=== PATIENT | female | born 1955 | race Caucasian/White ===

== ENCOUNTER 2017-02-05 05:31 | Emergency (ER) | payer BC ==
[2017-02-05] MEDS ORDERED: Nitrostat 0.4 MG (ED) SL ONE ×2 (05:51→05:54)
[2017-02-05] MEDS ORDERED: BABY ASPIRIN 81 MG CHEW PO ONE (05:51)
[2017-02-05] MEDS ORDERED: BABY ASPIRIN 81 MG CHEW ONE (05:54)
[2017-02-05] MEDS ORDERED: Sodium Chloride 0.9% 1000 ML 1,000 ML ONE (05:56)
[2017-02-05 05:58] LABS: BASOPHIL % 0.3 % (0.0-0.4); Eosinophil % 1.6 % (0.00-5.0); Granulocytes % 69.1 % (36.0-66.0); Lymphocytes % 22.4 % (24.0-44.0); Mean Cell Volume 88.1 fl (78-100); Mean Corpuscular Hemoglobin 29.1 pg (26-32); Mean Platelet Volume 10.4 fl (6-9.5); Monocytes % 6.6 % (0.0-12.0); Platelet Count 248 K/mm3 (150-450); Red Blood Count 5.39 M/mm3 (4.1-5.4); Red Cell Distribution Width 13.4 % (11.5-14.0); White Blood Count 10.6 K/mm3 (4.0-10.5)
[2017-02-05] MEDS ORDERED: NITRO-BID 2% UD PACKETS TOP ONE (05:58)
--- NOTE | 2017-02-05 05:58 | ERPHSYRPT ---
- History of Present Illness Time Seen by Provider: 02/05/17 05:50 Historian: patient Exam Limitations: other Patient Subjective Stated Complaint: chest pain since 10 yesterday morning , states its on right side radiating into right shoulder and some in back Triage Nursing Assessment: pt alert and orientedx3, balance is steady, ambulated by self, skin warm dry and intact, pulses strong equal bilateral radius, lung sounds clear diminished, bowel sounds x4. Physician History: PATIENT WITH A HISTORY OF COPD, HYPERTENSION AND CORONARY ARTERY DISEASE, UNDER WENT CARDIAC CATHERIZATION X 2, LAST CATHERIZATON IN 2013, AND NOW COMPLAINS OF SHARP RIGHT SIDED CHEST PAINS WHICH RADIATE TO HER BACK SINCE 10AM YESTERDAY, ASSOCIATED WITH DIAPHORESIS, WORSE UPON EXERTION. STATES PAIN SCALE 8/10 Timing/Duration: yesterday Activities at Onset: none Quality: sharpness, stabbing Location: central, other (RIGHT PARASTERNAL) Chest Pain Radiation: back Severity of Pain-Max: moderate Severity of Pain-Current: moderate Modifying Factors: Improves With: exertion Associated Symptoms: other (DIAPHORESIS) Prior Chest Pain/Cardiac Workup: cardiac cath (X 2) Nitro Today/Relief: provided by ED, complete relief Aspirin Treatment Today: 81 mg x 1, provided at home Allergies/Adverse Reactions: Iodinated Contrast- Oral and IV Dye [Iodinated Contrast Media - IV Dye] Allergy (Verified 05/24/15 16:04) Home Medications: Levothyroxine Sodium [Synthroid] 200 mcg PO DAILY 05/24/15 [History] Amlodipine Besylate [Norvasc] 2.5 mg PO DAILY 02/05/17 [History] Metformin HCl [Metformin HCl ER] 500 mg PO DAILY 02/05/17 [History] Metoprolol Tartrate 25 mg PO DAILY 02/05/17 [History] Hx Tetanus, Diphtheria Vaccination/Date Given: Yes Hx Influenza Vaccination/Date Given: No Hx Pneumococcal Vaccination/Date Given: No Immunizations Up to Date: Yes - Review of Systems Constitutional: No Fever, No Chills Eyes: No Symptoms Ears, Nose, & Throat: No Symptoms Respiratory: No Symptoms, No Cough, No Dyspnea Cardiac: Chest Pain, Other (DIAPHORESIS), No Edema, No Syncope Abdominal/Gastrointestinal: No Symptoms, No Abdominal Pain, No Nausea, No Vomiting, No Diarrhea Genitourinary Symptoms: No Symptoms, No Dysuria Musculoskeletal: No Symptoms, No Back Pain, No Neck Pain Skin: No Symptoms, No Rash Neurological: No Dizziness, No Focal Weakness, No Sensory Changes Psychological: No Symptoms Endocrine: No Symptoms All Other Systems: Reviewed and Negative - Past Medical History Pertinent Past Medical History: Yes Cardiac History: High Cholesterol, Hypertension, Other Endocrine Medical History: Hypothyroidism - Past Surgical History Past Surgical History: Yes Gastrointestinal: Appendectomy, Cholecystectomy Musculoskeletal: Other Female Surgical History: Hysterectomy, Lumpectomy - Social History Smoking Status: Current every day smoker How long have you smoked: 40 Exposure to second hand smoke: Yes Drug Use: none Patient Lives Alone: No - Nursing Vital Signs Nursing Vital Signs: Initial Vital Signs Temperature 97.5 F 02/05/17 05:31 Pulse Rate 76 02/05/17 05:31 Respiratory Rate 20 02/05/17 05:31 Blood Pressure 155/74 02/05/17 05:31 O2 Sat by Pulse Oximetry 96 02/05/17 05:31 Pain Scale Pain Intensity 2 - Physical Exam General Appearance: no apparent distress, alert Eye Exam: PERRL/EOMI, eyes nml inspection Ears, Nose, Throat Exam: normal ENT inspection, moist mucous membranes Neck Exam: normal inspection, non-tender, supple, full range of motion Respiratory Exam: normal breath sounds, lungs clear, No respiratory distress Cardiovascular Exam: regular rate/rhythm, normal heart sounds Gastrointestinal/Abdomen Exam: soft, normal bowel sounds (NONTENDER), No tenderness, No mass Back Exam: normal inspection, No CVA tenderness, No vertebral tenderness Extremity Exam: normal inspection, normal range of motion Neurologic Exam: alert, oriented x 3, cooperative, normal mood/affect, sensation nml, No motor deficits Skin Exam: normal color, warm, dry SpO2 Interpretation: normal SpO2: 96 Oxygen Delivery: Room Air - Course EKG Interpreted by Me: Sinus Rhythm, NORMAL AXIS, Other (ANTEROSEPTAL T-WAVE INVERSION) - Radiology Exams Chest X-ray Interpretation: Interpreted by me (BILATERAL LOWER LOBE INTERSTITIAL SCARRING VS ATELECTASIS, NO INFILTRATE) Ordered Tests: Active Orders 24 hr Category Date Time Status EKG-ER Only STAT Care 02/05/17 05:51 Active IV Insertion STAT Care 02/05/17 05:51 Active Oxygen-ED Only NASAL CANNULA 2 lpm Care 02/05/17 05:51 Active CHEST 1 VIEW (PORTABLE) Stat Exams 02/05/17 05:52 Taken CBC W DIFF Stat Lab 02/05/17 05:50 Received CMP Stat Lab 02/05/17 05:50 Received D-DIMER QUANTITATION Stat Lab 02/05/17 05:50 Received NT PRO BNP Stat Lab 02/05/17 05:50 Received PROTIME WITH INR Stat Lab 02/05/17 05:50 Received TROPONIN Q3H Lab 02/05/17 05:50 Received TROPONIN Q3H Lab 02/05/17 09:00 Ordered TROPONIN Q3H Lab 02/05/17 12:00 Ordered TROPONIN Q3H Lab 02/05/17 15:00 Ordered TROPONIN Q3H Lab 02/05/17 18:00 Ordered Medication Summary Generic Name Dose Route Start Last Admin Trade Name Freq PRN Reason Stop Dose Admin Sodium Chloride 1,000 mls @ 50 mls/hr 02/05/17 06:00 02/05/17 05:56 Sodium Chloride 0.9% 1000 Ml IV 03/07/17 05:59 50 mls/hr .Q20H LAURIE Administration Discontinued Medications Generic Name Dose Route Start Last Admin Trade Name Freq PRN Reason Stop Dose Admin Aspirin 324 mg 02/05/17 05:51 02/05/17 05:57 Baby Aspirin 81 Mg Chew PO 02/05/17 05:52 324 mg STAT ONE Administration Aspirin Confirm 02/05/17 05:54 Baby Aspirin 81 Mg Chew Administered 02/05/17 05:55 Dose 324 mg .ROUTE .STK-MED ONE Nitroglycerin 0.4 mg 02/05/17 05:51 02/05/17 05:57 Nitrostat 0.4 Mg (Ed) SL 02/05/17 05:52 0.4 mg STAT ONE Administration Nitroglycerin Confirm 02/05/17 05:54 Nitrostat 0.4 Mg (Ed) Administered 02/05/17 05:55 Dose 0.4 mg SL .STK-MED ONE Nitroglycerin 1 gm 02/05/17 05:58 02/05/17 05:59 Nitro-Bid 2% Ud Packets TOP 02/05/17 05:59 1 gm STAT ONE Administration Nitroglycerin Confirm 02/05/17 05:59 Nitro-Bid 2% Ud Packets Administered 02/05/17 06:00 Dose 1 gm .ROUTE .STK-MED ONE Lab/Rad Data: Laboratory Result Diagrams 02/05/17 05:50 Laboratory Results 02/05/17 02/05/17 02/05/17 Range/Units 05:50 05:50 05:50 WBC 10.6 H (4.0-10.5) K/mm3 RBC 5.39 (4.1-5.4) M/mm3 Hgb 15.7 (12.0-16.0) gm/dl Hct 47.5 H (35-47) % MCV 88.1 (78-100) fl MCH 29.1 (26-32) pg MCHC 33.1 (32-36) g/dl RDW 13.4 (11.5-14.0) % Plt Count 248 (150-450) K/mm3 MPV 10.4 H (6-9.5) fl Gran % 69.1 H (36.0-66.0) % Lymphocytes % 22.4 L (24.0-44.0) % Monocytes % 6.6 (0.0-12.0) % Eosinophils % 1.6 (0.00-5.0) % Basophils % 0.3 (0.0-0.4) % Basophils # 0.03 (0-0.4) INR 1.01 (0.8-3.0) D-Dimer 473 (0-500) ng/mL Troponin I < 0.017 (0.000-0.056) ng/ml - Progress Progress Note: 02/05/17 06:01 ADMINISTERED 4 BABY ASPIRIN, NTG 0.4MG SL WITH COMPLETE RELIEF OF PAIN, NITROPASTE 1"APPLIED TO CHEST WALL 02/05/17 06:58 Discussed with : Other (DISCUSSED WITH DR IBRAHIM ACCEPTS TRANSFER TO [facility] ER [facility]IA [facility]) - Departure Time of Disposition: 07:00 Departure Disposition: Transfer Clinical Impression: ACUTE CHEST PAIN Condition: Stable Critical Care Time: No Referrals: PRITI JOHNSON MD [Primary Care Provider] -
[2017-02-05] MEDS ORDERED: NITRO-BID 2% UD PACKETS ONE (05:59)
[2017-02-05] MEDS ORDERED: Sodium Chloride 0.9% 1000 ML 1,000 ML IV SCH (06:00)
[2017-02-05 06:24] LABS: INR 1.01 (0.8-3.0); PROTIME 11.2 SECONDS (9.95-12.35)
[2017-02-05 06:48] LABS: ALBUMIN 4.2 g/dL (3.4-5.0); ALKALINE PHOSPHATASE 88 U/L (46-116); ANION GAP 13.8 MEQ/L (5-15); BLOOD UREA NITROGEN 15 mg/dL (9-20); CHLORIDE 102 mEq/L (98-107); Carbon Dioxide 26.9 mEq/L (21-32); Glucose 198 MG/DL (70-110); Potassium 4.2 mEq/L (3.5-5.1); SGOT/AST 22 U/L (15-37); SGPT/ALT 43 U/L (12-78); SODIUM 139 mEq/L (136-145); Total Protein 8.3 gm/dL (6.4-8.2)
[2017-02-05 07:42] VITALS: BP 160/75; PULSE 86; O2SAT 97
--- NOTE | 2017-02-05 08:52 | XRAY ---
Indication: Chest pain. Comparison: December 25, 2012. Portable chest again demonstrates minimal bibasilar atelectasis/scarring with a few incidental calcified granulomas. Remaining lungs clear. Heart is not enlarged. Bony thorax intact with mild degenerative changes. Impression: Nonacute chest with chronic features.
== END 2017-02-05 07:43 | disposition short-term general hospital (02) ==
LOC: ED 05:31
DX: R07.89 Other chest pain (principal); J44.9 Chronic obstructive pulmonary disease, unspecified; I10 Essential (primary) hypertension; I25.10 Atherosclerotic heart disease of native coronary artery without angina pectoris; E78.00 Pure hypercholesterolemia, unspecified; E03.9 Hypothyroidism, unspecified
CPT/HCPCS: 36000; 36415; 71010; 80053; 83880; 84484; 85025; 85379; 85610; 93005; 96360; 96361; 99285; A9270-GY

== ENCOUNTER 2020-04-01 08:26 | Emergency (ER) | payer BC ==
--- NOTE | 2020-04-01 08:29 | ERPHSYRPT ---
- History of Present Illness Time Seen by Provider: 04/01/20 08:28 Historian: patient Exam Limitations: no limitations Physician History: This is a 64-year-old white female smoker of cigarettes who presents with right anterior chest wall tightness that began last night at 9 PM. Patient did not take any nitroglycerin last night or today. She did take 1 baby aspirin this morning. Patient has a history of hypertension, coronary artery disease, hypothyroidism, diabetes, COPD and elevated cholesterol. Patient has had cardiac catheterizations in the past. She does not have any cardiac stents in place. There is no radiation of her chest tightness. 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 Her primary care physician is Dr. Johnson Timing/Duration: yesterday Activities at Onset: none Quality: tightness Location: other (Right anterior chest wall) Chest Pain Radiation: no radiation Severity of Pain-Max: mild Severity of Pain-Current: mild (Rates it maximum 3 out of 10) Modifying Factors: Improves With: nothing Associated Symptoms: denies symptoms Prior Chest Pain/Cardiac Workup: no prior chest pain Nitro Today/Relief: no nitro taken today Aspirin Treatment Today: 81 mg x 1, provided at home Allergies/Adverse Reactions: Iodinated Contrast Media [Iodinated Contrast Media - IV Dye] Allergy (Verified 05/24/15 16:04) Home Medications: Levothyroxine Sodium [Synthroid] 200 mcg PO DAILY 05/24/15 [History] Amlodipine Besylate [Norvasc] 2.5 mg PO DAILY 02/05/17 [History] Metformin HCl [Metformin HCl ER] 500 mg PO DAILY 02/05/17 [History] Metoprolol Tartrate 25 mg PO DAILY 02/05/17 [History] Aspirin [Aspirin EC] 81 mg PO DAILY 04/01/20 [History] Fluticasone/Umeclidin/Vilanter [Trelegy Ellipta 100-62.5-25] 1 each IH DAILY 04/01/20 [History] Isosorbide Mononitrate [Isosorbide Mononitrate ER] 60 mg PO DAILY 04/01/20 [History] Hx Tetanus, Diphtheria Vaccination/Date Given: Yes Hx Influenza Vaccination/Date Given: No Hx Pneumococcal Vaccination/Date Given: No Travel Risk - International Travel Have you traveled outside of the country in past 3 weeks: No - Coronavirus Screening Are you exhibiting any of the following symptoms?: No Close contact with a COVID-19 positive Pt in past 14-21 Days: No - Review of Systems Constitutional: No Symptoms Eyes: No Symptoms Ears, Nose, & Throat: No Symptoms Respiratory: No Symptoms Cardiac: Chest Pain (Right anterior chest wall described as nonradiating tightness) Abdominal/Gastrointestinal: No Symptoms Genitourinary Symptoms: No Symptoms Musculoskeletal: No Symptoms Skin: No Symptoms Neurological: No Symptoms Psychological: No Symptoms Endocrine: No Symptoms Hematologic/Lymphatic: No Symptoms Immunological/Allergic: No Symptoms All Other Systems: Reviewed and Negative - Past Medical History Pertinent Past Medical History: Yes Neurological History: No Pertinent History ENT History: No Pertinent History Cardiac History: High Cholesterol, Hypertension, Other Respiratory History: No Pertinent History Endocrine Medical History: Hypothyroidism Musculoskeletal History: No Pertinent History GI Medical History: No Pertinent History History: No Pertinent History Psycho-Social History: No Pertinent History Female Reproductive Disorders: No Pertinent History - Past Surgical History Past Surgical History: Yes Neuro Surgical History: No Pertinent History Cardiac: Cardiac Catheterization Respiratory: No Pertinent History Gastrointestinal: Appendectomy, Cholecystectomy Musculoskeletal: Other Female Surgical History: Hysterectomy, Lumpectomy - Social History Smoking Status: Current every day smoker How long have you smoked: 40 Exposure to second hand smoke: Yes Drug Use: none Patient Lives Alone: No - Nursing Vital Signs Nursing Vital Signs: Initial Vital Signs Temperature 97.6 F 04/01/20 08:27 Pulse Rate 80 04/01/20 08:27 Respiratory Rate 20 04/01/20 08:27 Blood Pressure 155/66 04/01/20 08:27 O2 Sat by Pulse Oximetry 98 04/01/20 08:27 Pain Scale Pain Intensity 0 - Physical Exam General Appearance: no apparent distress, alert, anxiety Eye Exam: PERRL/EOMI, eyes nml inspection Ears, Nose, Throat Exam: normal ENT inspection, moist mucous membranes Neck Exam: normal inspection, non-tender, supple, full range of motion Respiratory Exam: normal breath sounds, chest tenderness, lungs clear, airway intact, No respiratory distress Cardiovascular Exam: regular rate/rhythm, normal heart sounds, normal peripheral pulses Gastrointestinal/Abdomen Exam: soft, normal bowel sounds, No tenderness Pelvic Exam: not done Rectal Exam: not done Back Exam: normal inspection, normal range of motion, No CVA tenderness, No vertebral tenderness Extremity Exam: normal inspection, normal range of motion, pelvis stable Neurologic Exam: alert, oriented x 3, cooperative, telemarketer II-XII nml as tested, normal mood/affect, nml cerebellar function, nml station & gait, sensation nml Skin Exam: normal color, warm, dry Lymphatic Exam: No adenopathy SpO2 Interpretation: normal O2 Delivery: Room Air - Course Nursing assessment & vital signs reviewed: Yes EKG Interpreted by Me: RATE (79), Sinus Rhythm, Right [place] Deviation, NORMAL INTERVALS, NORMAL QRS, Other (No acute ischemic changes on this EKG. When compared to EKG dated 02/05/2017 there are no significant changes.) Ordered Tests: Active Orders 24 hr Category Date Time Status Heat Treating Furnace Tender STAT Care 04/01/20 08:38 Active EKG-ER Only STAT Care 04/01/20 08:36 Active IV Insertion STAT Care 04/01/20 08:36 Active Pulse Oximetry (ED) STAT Care 04/01/20 08:36 Active CHEST 1 VIEW (PORTABLE) Stat Exams 04/01/20 08:52 Completed CBC W DIFF Stat Lab 04/01/20 08:44 Completed CMP Stat Lab 04/01/20 08:44 Completed D-DIMER QUANTITATIVE Stat Lab 04/01/20 08:44 Completed NT PRO BNP Stat Lab 04/01/20 08:44 Completed PROTIME WITH INR Stat Lab 04/01/20 08:44 Completed T4 (Thyroxine) Stat Lab 04/01/20 Completed TROPONIN Q3H Lab 04/01/20 08:44 Completed TROPONIN Q3H Lab 04/01/20 12:00 Completed TROPONIN Q3H Lab 04/01/20 14:45 Ordered TROPONIN Q3H Lab 04/01/20 17:45 Ordered TROPONIN Q3H Lab 04/01/20 20:45 Ordered TSH [TSH, 3RD Generation] Stat Lab 04/01/20 08:49 Completed Medication Summary Discontinued Medications Generic Name Dose Route Start Last Admin Trade Name Freq PRN Reason Stop Dose Admin Aspirin 243 mg 04/01/20 08:36 04/01/20 08:42 Baby Aspirin 81 Mg Chew PO 04/01/20 08:37 243 mg STAT ONE Administration Aspirin Confirm 04/01/20 08:46 Baby Aspirin 81 Mg Chew Administered 04/01/20 08:47 Dose 243 mg .ROUTE .STRuangguru-MED ONE Lab/Rad Data: Laboratory Result Diagrams 04/01/20 08:44 04/01/20 08:44 Laboratory Results 04/01/20 04/01/20 04/01/20 Range/Units Unknown 12:00 08:49 WBC (4.0-10.5) K/mm3 RBC (4.1-5.4) M/mm3 Hgb (12.0-16.0) gm/dl Hct (35-47) % MCV (78-100) fl MCH (26-32) pg MCHC (32-36) g/dl RDW (11.5-14.0) % Plt Count (150-450) K/mm3 MPV (7.5-11.0) fl Gran % (36.0-66.0) % Eos # (Auto) (0-0.5) Absolute Lymphs (auto) (1.0-4.6) Absolute Monos (auto) (0.0-1.3) Lymphocytes % (24.0-44.0) % Monocytes % (0.0-12.0) % Eosinophils % (0.00-5.0) % Basophils % (0.0-0.4) % Absolute Granulocytes (1.4-6.9) Basophils # (0-0.4) PT (9.95-12.35) SECONDS INR (0.8-3.0) D-Dimer (215-500) ng/mL Sodium (137-145) mmol/L Potassium (3.5-5.1) mmol/L Chloride (98-107) mmol/L Carbon Dioxide (22-30) mmol/L Anion Gap (5-15) MEQ/L BUN (7-17) mg/dL Creatinine (0.52-1.04) mg/dL Estimated GFR ML/MIN Glucose (74-106) mg/dL Calcium (8.4-10.2) mg/dL Total Bilirubin (0.2-1.3) mg/dL AST (14-36) U/L ALT (0-35) U/L Alkaline Phosphatase (38-126) U/L Troponin I < 0.012 (0.000-0.034) ng/mL NT-Pro-B Natriuret Pep (0-900) pg/mL Serum Total Protein (6.3-8.2) g/dL Albumin (3.5-5.0) g/dL Thyroxine (T4) 18.5 H (5.53-10.96) ug/dL TSH 3rd Generation < 0.015 L (0.47-4.68) mIU/L 04/01/20 04/01/20 04/01/20 Range/Units 08:44 08:44 08:44 WBC (4.0-10.5) K/mm3 RBC (4.1-5.4) M/mm3 Hgb (12.0-16.0) gm/dl Hct (35-47) % MCV (78-100) fl MCH (26-32) pg MCHC (32-36) g/dl RDW (11.5-14.0) % Plt Count (150-450) K/mm3 MPV (7.5-11.0) fl Gran % (36.0-66.0) % Eos # (Auto) (0-0.5) Absolute Lymphs (auto) (1.0-4.6) Absolute Monos (auto) (0.0-1.3) Lymphocytes % (24.0-44.0) % Monocytes % (0.0-12.0) % Eosinophils % (0.00-5.0) % Basophils % (0.0-0.4) % Absolute Granulocytes (1.4-6.9) Basophils # (0-0.4) PT 13.0 H (9.95-12.35) SECONDS INR 1.15 (0.8-3.0) D-Dimer 545 H* (215-500) ng/mL Sodium 136 L (137-145) mmol/L Potassium 4.1 (3.5-5.1) mmol/L Chloride 102 (98-107) mmol/L Carbon Dioxide 26 (22-30) mmol/L Anion Gap 12.3 (5-15) MEQ/L BUN 16 (7-17) mg/dL Creatinine 0.69 (0.52-1.04) mg/dL Estimated GFR > 60.0 ML/MIN Glucose 187 H (74-106) mg/dL Calcium 9.7 (8.4-10.2) mg/dL Total Bilirubin 1.10 (0.2-1.3) mg/dL AST 25 (14-36) U/L ALT 27 (0-35) U/L Alkaline Phosphatase 82 (38-126) U/L Troponin I < 0.012 (0.000-0.034) ng/mL NT-Pro-B Natriuret Pep 66.4 (0-900) pg/mL Serum Total Protein 7.6 (6.3-8.2) g/dL Albumin 4.4 (3.5-5.0) g/dL Thyroxine (T4) (5.53-10.96) ug/dL TSH 3rd Generation (0.47-4.68) mIU/L 04/01/20 Range/Units 08:44 WBC 10.9 H (4.0-10.5) K/mm3 RBC 5.32 (4.1-5.4) M/mm3 Hgb 15.5 (12.0-16.0) gm/dl Hct 46.9 (35-47) % MCV 88.2 (78-100) fl MCH 29.1 (26-32) pg MCHC 33.0 (32-36) g/dl RDW 13.6 (11.5-14.0) % Plt Count 247 (150-450) K/mm3 MPV 10.1 (7.5-11.0) fl Gran % 73.6 H (36.0-66.0) % Eos # (Auto) 0.16 (0-0.5) Absolute Lymphs (auto) 2.00 (1.0-4.6) Absolute Monos (auto) 0.67 (0.0-1.3) Lymphocytes % 18.4 L (24.0-44.0) % Monocytes % 6.2 (0.0-12.0) % Eosinophils % 1.5 (0.00-5.0) % Basophils % 0.3 (0.0-0.4) % Absolute Granulocytes 7.99 H (1.4-6.9) Basophils # 0.03 (0-0.4) PT (9.95-12.35) SECONDS INR (0.8-3.0) D-Dimer (215-500) ng/mL Sodium (137-145) mmol/L Potassium (3.5-5.1) mmol/L Chloride (98-107) mmol/L Carbon Dioxide (22-30) mmol/L Anion Gap (5-15) MEQ/L BUN (7-17) mg/dL Creatinine (0.52-1.04) mg/dL Estimated GFR ML/MIN Glucose (74-106) mg/dL Calcium (8.4-10.2) mg/dL Total Bilirubin (0.2-1.3) mg/dL AST (14-36) U/L ALT (0-35) U/L Alkaline Phosphatase (38-126) U/L Troponin I (0.000-0.034) ng/mL NT-Pro-B Natriuret Pep (0-900) pg/mL Serum Total Protein (6.3-8.2) g/dL Albumin (3.5-5.0) g/dL Thyroxine (T4) (5.53-10.96) ug/dL TSH 3rd Generation (0.47-4.68) mIU/L - Progress Progress: improved, re-examined Air Movement: good Progress Note: 04/01/20 09:26 cxr-no acute findings 04/01/20 12:30 Medical decision making: This patient no longer has chest pain or tightness. Patient's cardiac enzymes are normal. Her D-dimer is only slightly elevated. I do not believe that she has pulmonary emboli. The patient is allergic to iodinated contrast media. Patient is not short of breath. The patient will be discharged to home with 2 normal cardiac enzyme levels. She is to contact her prescribing doctor to discuss changes in her thyroid replacement therapy if indicated. She is also to call her forest supervisor today for making arrangement for a follow-up visit. Blood Culture(s) Obtained: No Antibiotics given: No Counseled pt/family regarding: lab results, diagnosis, need for follow-up, rad results - Departure Departure Disposition: Home Clinical Impression: Chest tightness, Hyperthyroidism Condition: Stable Critical Care Time: No Referrals: PRITI JOHNSON MD [Primary Care Provider] -
[2020-04-01] MEDS ORDERED: BABY ASPIRIN 81 MG CHEW PO ONE (08:36)
[2020-04-01] MEDS ORDERED: BABY ASPIRIN 81 MG CHEW ONE (08:46)
[2020-04-01 08:47] LABS: Absolute Neutrophil Ct (ANC) 7.99 (1.4-6.9); BASOPHIL % 0.3 % (0.0-0.4); Basophil (Absolute #) 0.03 (0-0.4); Eosinophil % 1.5 % (0.00-5.0); Eosinophil (Absolute #) 0.16 (0-0.5); Hematocrit 46.9 % (35-47); Hemoglobin 15.5 gm/dl (12.0-16.0); Lymphocytes % 18.4 % (24.0-44.0); Mean Cell Volume 88.2 fl (78-100); Mean Corpuscular Hemoglobin 29.1 pg (26-32); Mean Platelet Volume 10.1 fl (7.5-11.0); Monocyte (Absolute #) 0.67 (0.0-1.3); Monocytes % 6.2 % (0.0-12.0); Neutrophil % 73.6 % (36.0-66.0); Platelet Count 247 K/mm3 (150-450); Red Blood Count 5.32 M/mm3 (4.1-5.4); Red Cell Distribution Width 13.6 % (11.5-14.0); White Blood Count 10.9 K/mm3 (4.0-10.5)
[2020-04-01 08:54] LABS: INR 1.15 (0.8-3.0)
[2020-04-01 09:07] LABS: ALBUMIN 4.4 g/dL (3.5-5.0); ALKALINE PHOSPHATASE 82 U/L (38-126); ANION GAP 12.3 MEQ/L (5-15); BLOOD UREA NITROGEN 16 mg/dL (7-17); CHLORIDE 102 mmol/L (98-107); Calcium 9.7 mg/dL (8.4-10.2); Carbon Dioxide 26 mmol/L (22-30); Creatinine 1 0.69 mg/dL (0.52-1.04); EST GLOMERULAR FILTRATION RATE > 60.0 ML/MIN; Glucose 187 mg/dL (74-106); NT PRO BNP 66.4 pg/mL (0-900); Potassium 4.1 mmol/L (3.5-5.1); SGOT/AST 25 U/L (14-36); SGPT/ALT 27 U/L (0-35); SODIUM 136 mmol/L (137-145); Total Protein 7.6 g/dL (6.3-8.2)
--- NOTE | 2020-04-01 09:14 | XRAY ---
Indication: Right chest wall tightness. COPD. Comparison: July 04, 2018. Portable chest again demonstrates lingula suture material. Remaining heart and lungs unremarkable. Bony thorax intact. No new/acute findings.
[2020-04-01 13:15] VITALS: BP 130/70; PULSE 84; O2SAT 98
== END 2020-04-01 13:23 | disposition home or self-care (01) ==
LOC: ED 08:26
DX: R07.89 Other chest pain (principal); E05.90 Thyrotoxicosis, unspecified without thyrotoxic crisis or storm; I10 Essential (primary) hypertension; I25.10 Atherosclerotic heart disease of native coronary artery without angina pectoris; E06.9 Thyroiditis, unspecified; E11.9 Type 2 diabetes mellitus without complications; J44.9 Chronic obstructive pulmonary disease, unspecified; E78.00 Pure hypercholesterolemia, unspecified; Z79.899 Other long term (current) drug therapy
CPT/HCPCS: 36000; 36415; 71045; 80053; 83880; 84436; 84443; 84484; 85025; 85379; 85610; 93005; 93041; 94760; 99284; A9270-GY

== ENCOUNTER 2024-12-22 09:18 | Emergency (ER) | payer MEDICARE ==
--- NOTE | 2024-12-22 09:22 | ERPHSYRPT ---
- History of Present Illness Time Seen by Provider: 12/22/24 09:22 Source: patient Exam Limitations: no limitations Physician History: This is a right handed 69-year-old white female patient brought to the emergency department by private vehicle accompanied by her spouse and is a patient of Dr. Johnson. Patient has chronic recurrent right wrist tenderness and swelling since she has had a bone graft placed in the past. In the last several days she has been lifting items at work which has caused intermittent, recurrent right wrist tenderness and swelling. The tenderness and swelling typically only lasts a day or less. However 2 days ago she was lifting something heavier at work and she has had the swelling and tenderness has been persistent over the last 2 days. She was concerned there may be an issue with the bone graft that are in place several years ago. Patient has a history of hypertension, diabetes, chronic angina and hypothyroidism Occurred: days ago (2) Method of Injury: other (Heavy lifting) Quality: aching Severity of Pain-Max: mild (To moderate) Severity of Pain-Current: mild (To moderate) Extremities Pain Location: wrist: right Modifying Factors: Improves With: movement Associated Symptoms: other (Swelling of the right wrist dorsally) Allergies/Adverse Reactions: Iodinated Contrast Media [Iodinated Contrast Media - IV Dye] Allergy (Verified 12/22/24 09:45) Home Medications: Levothyroxine Sodium [Synthroid] 200 mcg PO DAILY 05/24/15 [History] Amlodipine Besylate [Norvasc] 2.5 mg PO DAILY 02/05/17 [History] Metformin HCl [Metformin HCl ER] 500 mg PO DAILY 02/05/17 [History] Metoprolol Tartrate 25 mg PO DAILY 02/05/17 [History] Aspirin [Aspirin EC] 81 mg PO DAILY 04/01/20 [History] Fluticasone/Umeclidin/Vilanter [Trelegy Ellipta 100-62.5-25] 1 each IH DAILY PRN PRN 04/01/20 [History] Isosorbide Mononitrate [Isosorbide Mononitrate ER] 60 mg PO DAILY 04/01/20 [History] Hx Tetanus, Diphtheria Vaccination/Date Given: Yes Hx Influenza Vaccination/Date Given: No Hx Pneumococcal Vaccination/Date Given: No Travel Risk - International Travel Have you traveled outside of the country in past 3 weeks: No - Emerging Infectious Disease Are you exhibiting symptoms associated with any current EIDs: No - Review of Systems Constitutional: No Symptoms Eyes: No Symptoms Ears, Nose, & Throat: No Symptoms Respiratory: No Symptoms Cardiac: No Symptoms Abdominal/Gastrointestinal: No Symptoms Genitourinary Symptoms: No Symptoms Musculoskeletal: Joint Pain (Right wrist), Joint Swelling (Right wrist) Skin: No Symptoms Neurological: No Symptoms Psychological: No Symptoms Endocrine: No Symptoms Hematologic/Lymphatic: No Symptoms Immunological/Allergic: No Symptoms All Other Systems: Reviewed and Negative - Past Medical History Pertinent Past Medical History: Yes Neurological History: No Pertinent History ENT History: No Pertinent History Cardiac History: High Cholesterol, Hypertension, Other Respiratory History: No Pertinent History Endocrine Medical History: Hypothyroidism Musculoskeletal History: No Pertinent History GI Medical History: No Pertinent History History: No Pertinent History Psycho-Social History: No Pertinent History Female Reproductive Disorders: No Pertinent History - Past Surgical History Past Surgical History: Yes Neuro Surgical History: No Pertinent History Cardiac: Cardiac Catheterization Respiratory: No Pertinent History Gastrointestinal: Appendectomy, Cholecystectomy Musculoskeletal: Other Female Surgical History: Hysterectomy, Lumpectomy - Social History Smoking Status: Current every day smoker How long have you smoked: 40 Exposure to second hand smoke: Yes Drug Use: none Patient Lives Alone: No - Nursing Vital Signs Nursing Vital Signs: Initial Vital Signs Temperature 96.7 F 12/22/24 09:19 Pulse Rate 75 12/22/24 09:19 Respiratory Rate 18 12/22/24 09:19 Blood Pressure 151/83 12/22/24 09:19 O2 Sat by Pulse Oximetry 97 12/22/24 09:19 Pain Scale Pain Intensity 5 - Physical Exam General Appearance: no apparent distress, alert Eyes, Ears, Nose, Throat Exam: normal ENT inspection, moist mucous membranes Neck Exam: normal inspection, non-tender, supple, full range of motion Cardiovascular/Respiratory Exam: chest non-tender, no respiratory distress Abdominal Exam: non-tender Back Exam: normal inspection, normal range of motion, No CVA tenderness, No vertebral tenderness Shoulder Exam: normal inspection, non-tender, no evidence of injury, normal ROM Elbow/Forearm Exam: normal inspection, non-tender, no evidence of injury, normal ROM Wrist Exam: normal ROM, soft tissue tenderness (Dorsally right wrist), swelling (Dorsally right wrist) Hand Exam: normal inspection, non-tender, no evidence of injury, normal ROM Neuro/Tendon Exam: normal sensation, normal motor functions, normal tendon functions, responds to pain, no evidence tendon injury Mental Status Exam: alert, oriented x 3, cooperative Skin Exam: normal color, warm, dry SpO2 Interpretation: normal O2 Delivery: Room Air - Course Nursing assessment & vital signs reviewed: Yes Ordered Tests: Active Orders 24 hr Category Date Time Status Splint STAT Care 12/22/24 10:55 Active WRIST (MIN 3 VIEWS) Stat Exams 12/22/24 10:25 Completed - Progress Progress: unchanged, pain not gone completely, re-examined Progress Note: 12/22/24 10:53 My medical decision making and the assignment of low complexity to this patient's medical issue today is based on review of the patient's past medical history, reviewed patient medication list, reviewed patient drug allergy list, history present illness and physical findings on examination. The workup in this patient includes x-ray of the patient's right wrist. Differential diagnosis includes but is not limited to right wrist sprain, right wrist fracture, right wrist dislocation I interpreted the patient's preliminary report of the right wrist x-ray. I see no acute fracture or dislocation. I am sending the x-ray to the radiologist for final report. 12/22/24 11:43 The final report was interpreted by the radiologist. I reviewed the impression. The impression states marked arthritic changes in the right wrist as well as the first carpometacarpal articulation. There is scaphoid sclerotic/cystic changes. Counseled pt/family regarding: diagnosis, need for follow-up, rad results Medical Desision Making - Independent Historian Additional History obtained from: Spouse - Diagnostic Testing Diagnostic test were ordered, analyzed, and reviewed by me: Yes Radiological Interpretation: Interpreted by me, Reviewed by me, Teleradiologist Report - Risk of complications Low Risk: Low risk of morbidity from additional dx testing or treatment - Departure Departure Disposition: Home Clinical Impression: Right wrist pain Condition: Stable Critical Care Time: No Referrals: PRITI JOHNSON MD [Primary Care Provider, [facility]] - Follow up/PCP as directed Additional Instructions: Ice pack to tender area 3-4 times a day for 3 days. Wear the splint for comfort. Call your primary care provider on 12/24/2024 if symptoms persist
[2024-12-22 09:41] VITALS: RESP 18; TEMP 96.7
--- NOTE | 2024-12-22 11:39 | XRAY ---
CLINICAL HISTORY: right wrist pain/swelliong COMPARISON: None. TECHNIQUE: X-ray images of the right wrist were obtained in [place], lateral, and oblique projections. FINDINGS: Bone Structure & Joint Spaces: There are marked arthritic changes in the right wrist as well as the first carpometacarpal articulation, with narrowed joint spaces, subchondral sclerotic and cystic changes, largest in the scaphoid bone, and periarticular osteopenic texture. The joint spaces are normal. There is no evidence of joint effusion or subluxation. Soft Tissues: Some calcific foci are seen related to the triangular fibrocartilage region. No soft tissue swelling or foreign bodies are noted. Additional Findings: No signs of osteoarthritis, bone spurs, lytic or sclerotic lesions. IMPRESSION: 1. 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 2. Some calcific foci are seen related to the triangular fibrocartilage region. 3. Scaphoid sclerotic/cystic changes. Disclaimer: A subtle bone abnormality or fracture may not be readily apparent on X-rays, thus clinical correlation and further imaging including follow-up CT, MRI, or follow-up X-rays are advised as needed. Electronically Signed by: Tobin Gregory MD. (12/22/2024 11:39:29 EDT)
[2024-12-22 12:04] VITALS: BP 129/77; PULSE 81; O2SAT 98
== END 2024-12-22 12:20 | disposition home or self-care (01) ==
LOC: ED 09:18
DX: M25.531 Pain in right wrist (principal); I10 Essential (primary) hypertension; E11.9 Type 2 diabetes mellitus without complications; Z79.84 Long term (current) use of oral hypoglycemic drugs; Z79.899 Other long term (current) drug therapy; Z72.0 Tobacco use